=== PATIENT | female | born 1940 | race Caucasian/White ===

== ENCOUNTER 2019-03-14 11:59 | Inpatient (IN) ==
[2019-03-14] MEDS ORDERED: ALUMINUM/MAGNESIUM SUSP 30 ML UDC PO PRN (12:33)
[2019-03-14] MEDS ORDERED: MAGNESIUM HYDROXIDE SUSP 30 ML UDC PO PRN (12:33)
[2019-03-14] MEDS ORDERED: ONDANSETRON INJ 2 MG/ML 2 ML VIAL IV PRN (12:33)
[2019-03-14] MEDS ORDERED: POLYETHYLENE (MIRALAX) 17 GM PACK PO PRN (12:33)
[2019-03-14] MEDS ORDERED: ACETAMINOPHEN 325 MG TAB PO PRN (12:33)
[2019-03-14] MEDS ORDERED: GLUCOSE 10 TABS/TUBE PO PRN (12:43)
[2019-03-14] MEDS ORDERED: CARBOHYDRATES FOR HYPOGLYCEMIA PO PRN (12:43)
[2019-03-14] MEDS ORDERED: GLUCAGON FOR INJ 1 MG VIAL SQ PRN (12:43)
[2019-03-14] MEDS ORDERED: DEXTROSE 50% 50 ML SYRINGE IV PRN (12:43)
[2019-03-14] MEDS ORDERED: GLUCOSE 40% GEL 15 GM TUBE PO PRN (12:43)
[2019-03-14 13:17] LABS: Basophils # (auto) 0.07 K/uL (0-0.2); Eosinophils # (auto) 0.15 K/uL (0-0.5); Hematocrit (blood only) 38.5 % (37-47); Hemoglobin 12.4 g/dL (12.0-16.0); Immature Granulocytes # (auto) 0.03 K/uL (0.00-0.02); Immature Granulocytes % (auto) 0.4 %; Lymphocytes % (auto) 21.7 %; Mean Corpuscular Hemoglobin 30.5 pg (25-34); Mean Corpuscular Hgb Conc 32.2 g/dL (32-36); Mean Corpuscular Volume 94.8 fL (80-100); Mean Platelet Volume 10.1 fL (7.4-10.4); Monocytes # (auto) 0.83 K/uL (0.11-0.59); Monocytes % (auto) 11.3 %; Neutrophils # (auto) 4.68 K/uL (1.4-6.5); Neutrophils % (auto) 63.6 %; Platelet Count 307 K/uL (130-400); RDW Coefficient of Variation 14.3 % (11.5-14.5); RDW Standard Deviation 49.7 fL (36.4-46.3); Red Blood Count 4.06 M/uL (4.2-5.4); White Blood Count 7.36 K/uL (4.8-10.8)
[2019-03-14 13:30] LABS: Alanine Aminotransferase 14 U/L (12-78); Aspartate Aminotransferase 10 U/L (15-37); Blood Urea Nitrogen 16 mg/dl (7-18); Carbon Dioxide 27 mmol/L (21-32); Chloride 107 mmol/L (98-107); Creatinine Clr Calc Pharmacy 54.7 ml/min; Est GFR (African American) 80.6; Est GFR (Non-African American) 69.6; Glucose 113 mg/dl (70-99); Magnesium 1.7 mg/dl (1.8-2.4); Potassium 4.3 mmol/L (3.5-5.1); Sodium 139 mmol/L (136-145)
[2019-03-14 13:35] LABS: Alkaline Phosphatase 112 U/L (45-117); Bilirubin,Total 0.4 mg/dl (0.2-1); Globulin 4.1 gm/dl (2.5-4.0); NT Pro B Type Natriuretic Pept 1314 pg/ml (0-1800); Total Protein 8.1 gm/dl (6.4-8.2); Troponin I < 0.015 ng/ml (0-0.045)
--- NOTE | 2019-03-14 13:50 | History & Physical Report ---
Date of Service March 14, 2019 Assessment & Plan (1) Acute systolic (congestive) heart failure: (2) Cardiomyopathy: (3) Left bundle branch block: This is a pleasant 78-year-old female who has significant past medical history of HTN, HLD, T2DM, intermittent vertigo who presents as a direct admission from cardiology clinic secondary to progressive shortness of breath x3 weeks. Echocardiogram in clinic today revealed severe LV systolic function with EF 25%, severe mitral tricuspid regurgitation with moderate pulmonary hypertension. New onset of acute systolic CHF with cardiomyopathy of unknown etiology. Lab work revealed CBC relatively unremarkable, CMP relatively unremarkable, ex cept glucose 113, troponin WNL, proBNP 1314 TSH and iron studies pending Admit to PCU Cardiology consulted - discussed case with Dr. Johnston IV Lasix 40mg BID Initiate Toprol-XL 12.5 mg twice daily, continue ARB Strict I's and O's, daily standing weights Heart healthy, low-sodium diet N.p.o. after midnight, likely cardiac catheterization during admission, cardiology to reevaluate volume status in a.m. (4) Diabetes: T2DM A1c on 03/01/2019 was 7.2 On metformin as outpatient Hold metformin, NovoLog sliding scale per protocol (5) HTN (hypertension): Current blood pressure 153/89 Continue losartan, Toprol-XL added Monitor (6) HLD (hyperlipidemia): continue simvastatin 20mg MWF Last lipid panel done 03/01/2019 revealed total cholesterol 161, HDL 65, triglycerides 121, LDL 72 (7) DVT prophylaxis: SCD/TEDS hold chemical prophylaxis in setting of possible cardiac catheterization in a.m. Disposition: admit to PCU Follow up: PCP Sushant Ly PA-C upon discharge along with appropriate cardiology follow up Patient was seen and examined in collaboration with Dr. Fernando, please see addendum History of Present Illness Chief Complaint: Progressive shortness of breath x3 weeks. Primary Care Provider: Sushant Ly PA-C This is a pleasant 78-year-old female who has significant past medical history of HTN, HLD, T2DM, intermittent vertigo who presents as a direct admission from cardiology clinic secondary to progressive shortness of breath x3 weeks. Daughter is at bedside. She was seen and evaluated in clinic by PCP on 03/08/2019 who ordered EKG which revealed new LBBB. She was referred to cardiology clinic and was seen and evaluated today by Dr. Somers. Of significance, the past 3 weeks she has had significant and progressive shortness of breath even with minimal ambulation like walking next door to son's house and operating a vacuum housekeeping cleaner. Prior to this she had been able to walk 2 miles without difficulty. She also elicits to PND, waking up in the middle night, "feeling like I am suffocating." This required her to get up and sleep in a recliner which did alleviate symptoms. With shortness of breath she does exhibit precordial chest pressure with occasional radiation of pain to left arm that resolves with rest. Of significance approximately 4 to 5 weeks ago she did suffer from URI which has resolved. She denies any fever, chills, sweats, lightheadedness, dizziness, syncope, shortness breath at rest, palpitations, cough, hemoptysis, headache, nausea, vomiting, diarrhea, abdominal pain, dysuria, increased urgency or frequency with urination, melena, hematochezia. She has had significant stress in her life including the passing of her 12-year-old Yorki in early January as well as losing her eldest daughter approximately 2 years ago cardiomyopathy and lymphoma. She has never experienced similar symptoms in past and denies prior history of MD. Cardiac cath approximately 10 years ago which was unremarkable per patient. Her appetite has been unchanged and she denies any significant weight gain or loss. She further denies any peripheral or lower extremity edema. She did take her medications this morning. She does not take any daily aspirin secondary to allergy, "causes nausea." In clinic today EKG demonstrated sinus tachycardia with a left bundle branch block. This was new compared to EKG dated in 2007. Pulmonary resting 2D echo revealed severe LV systolic function with EF 25%, severe mitral and tricuspid re gurg with moderate pulmonary hypertension. Given these findings she was referred for direct admission for treatment of acute decompensated heart failure. Allergies Allergy/AdvReac Type Severity Reaction Status Date / Time adhesive Allergy Mild RASH Verified 03/24/15 07:00 aspirin Allergy Mild NAUSEA Verified 03/24/15 07:00 lisinopril AdvReac Mild COUGH Verified 03/24/15 09:14 Home Medications Home Medications Medication Instructions Recorded Confirmed Type losartan 25 mg PO DAILY 03/14/19 03/14/19 History metformin 850 mg PO BIDM 03/14/19 03/14/19 History naproxen 500 mg PO BID 03/14/19 03/14/19 History simvastatin 20 mg PO 3XWK 03/14/19 03/14/19 History Past Med/Surg History Medical History (Updated 03/14/19 @ 14:27 by Evy Lopez PA-C) Diabetes (Chronic) Diverticulosis History of left heart catheterization History of vertigo HLD (hyperlipidemia) HTN (hypertension) Surgical History (Updated 03/14/19 @ 13:59 by Evy Lopez PA-C) History of appendectomy History of hysterectomy with bilateral oophorectomy History of partial colectomy Laparoscopic-assisted sigmoid colon resection by Dr. Pitt 03/24/2015 Family History Daughter Cardiomyopathy Lymphoma Mother , 69 Pancreatic cancer Father , 69 AAA (abdominal aortic aneurysm) Social History (Updated 03/14/19 @ 14:01 by Evy Lopez PA-C) Preferred Language: Korean Communication Ability: Effective Beliefs That Will Affect Care: None marital status: / Current Living Situation: Alone Other Information That Helps Us Care for You: No Feels Safe at Home: Yes Safety Concerns: Feels Safe At This Time Smoking Status: Former smoker Smoking End Date: 1997 ; Hx Alcohol Use: Yes Alcohol type: wine Alcohol Intake Frequency: Rarely Hx Substance Use: No Review of Systems Review of Systems: All systems reviewed & are unremarkable except as noted in HPI & below Physical Exam Physical Exam: Please see attending addendum for physical exam findings. Results & Data Vital Signs (Past 12 Hours) Vital Signs Temp Pulse Resp BP Pulse Ox 03/14/19 12:55 36.9 C 100 H 22 153/89 H 96 Laboratory Results Short CBC 03/14/19 Range/Units 12:55 WBC 7.36 (4.8-10.8) K/uL Hgb 12.4 (12.0-16.0) g/dL Hct 38.5 (37-47) % Plt Count 307 (130-400) K/uL BMP 03/14/19 12:55 Sodium 139 Potassium 4.3 Chloride 107 Carbon Dioxide 27 BUN 16 Creatinine 0.81 Glucose 113 H Calcium 10.0 Cardiac Enzymes 03/14/19 Range/Units 12:55 Troponin I < 0.015 (0-0.045) ng/ml Liver Function 03/14/19 Range/Units 12:55 Total Bilirubin 0.4 (0.2-1) mg/dl AST 10 L (15-37) U/L ALT 14 (12-78) U/L Alkaline Phosphatase 112 (45-117) U/L Albumin 4.0 (3.4-5.0) gm/dl Diagnostic Findings CXR: done in outpt clinic EXAM XR CHEST 2 VIEWS-03/08/2019 4:20 pm HISTORY SOB COMPARISON XR CHEST 2 VIEWS dated 03/03/2018; CHEST 2 VIEWS AP OR PA AND LATERAL dated 10/18/2016; CHEST 2 VIEWS AP OR PA AND LATERAL dated 05/24/2007 TECHNIQUE Frontal and lateral views of the chest are examined. FINDINGS There is no infiltrate or pleural effusion. There is biapical thickening. There is linear atelectasis in the lingula. The pulmonary vasculature is within normal limits. The cardiomediastinal silhouette is stable. The osseous structures demonstrate degenerative changes. IMPRESSION IMPRESSION No evidence of acute cardiopulmonary disease. Code Status & VTE Plan Code Status Full Code VTE Prophylaxis Plan VTE Prophylaxis will be ordered: Yes Supervising Physician Co-Signing Physician Notes 78-year-old female who has significant past medical history of HTN, HLD, T2DM, intermittent vertigo who presents as a direct admission from cardiology clinic secondary to progressive shortness of breath x3 weeks. Patient was seen by me. History and physical exam obtained by me. History significant for dyspnea on exertion for 3 weeks, occasional PND and orthopnea; URI about 2 weeks prior to onset and loss of her dog prior to onset of symptoms. Detailed history is as documented by Evy MIN On physical exam General: Well nourished, well hydrated, no acute distress and not ill appearing Eyes: PERRL, conjunctivae normal, not pale, anicteric sclerae, EOM intact bilaterally ENMT: External ear and nose normal, oropharynx normal Neck: Normal visual inspection, no tracheal deviation, no swelling noted Respiratory: Normal respiratory effort, no respiratory distress, good air entry bilaterally, + mild bibasilar rales, no wheeze Cardiovascular: Pulse is RRR. S1 S2. no murmur. Vessels: normal peripheral pulses Extremities: no pedal edema Chest (Breasts): Chest: normal inspection of chest Gastrointestinal (Abdomen): Abdomen is not distended, soft, non-tender to palpation, no guarding, no palpable hepatosplenomegaly, normal bowel sounds Musculoskeletal: No cyanosis or clubbing, all extremities motor strength 5/5 Genitourinary: No CVA tenderness Skin: No rash noted on gross inspection, No ulcers noted Neurologic: Alert and oriented x 3, No focal weakness, sensation grossly intact Psychiatric: Alert and oriented x 3, euthymic affect, no depressed affect Lymphatic: No cervical and axillary lymphadenopathy Echo in Cardiology office noted to be EF of 25% BNP 1314 Acute systolic heart failure EKG reported to be new LBBB from Card office Get EKG IV lasix 40 bid Monitor electrolytes and replenish Follow up Echo report already done in office Discussed with Dr Johnston, Taste Tester Start toprol XL 12.5mg bid as recommended. Continue losartan Monitor I/O Will need cardiac cath during this admission Will keep NPO PMN Agree with other plans as detailed by Evy Lopez PA-C
--- NOTE | 2019-03-14 13:52 | Cardiology Consultation ---
Date of Consultation March 14, 2019 Assessment & Plan (1) Cardiomyopathy: Patient presents with newly diagnosed congestive heart failure manifesting as shortness of breath fatigue orthopnea and PND. EKG with new left bundle branch block, echocardiogram with moderately severe LV dysfunction tricuspid insufficiency, distinct etiology not yet defined. Plan initiate appropriate medical therapies with beta-sameer, diuretic. Continue ARB Screening studies for iron, thyroid function test ordered Discussed in detail with the patient, will likely proceed to diagnostic cardiac catheterization this admission. We will keep n.p.o. after midnight tonight and reassess in a.m.With potential diagnostic cardiac catheterization tomorrow. Patient with previous diagnostic cardiac catheterization 2007 with normal findings. Procedure uneventful (2) Left bundle branch block: (3) Acute systolic (congestive) heart failure: History of Present Illness Reason for Consultation: Cardiomyopathy with congestive heart failure Requesting Physician: Dr Fernando Attending Physician: Michelle Fernando MD History of Present Illness Patient is a 78-year-old female referred for evaluation of increasing dyspnea orthopnea and PND. Patient was seen in the outpatient setting today please refer to full outpatient consultation per Dr. Somers In brief patient has approximately 3 to 4-week history potentially longer of increasing dyspnea fatigue and shortness of breath at night waking her from sleep on 2 occasions. Recent evaluations demonstrated newly observed left bundle branch block and echocardiogram today diminished LV systolic function with exam history and EKG and chest x-ray reflective of mild congestive heart failure. Patient's referred for inpatient management She has no prior history of distant cardiac disease did undergo diagnostic cardiac catheterization in 2007 after abnormal stress testing with normal coronaries per report. Currently comfortable but nervous heart rates 90 to 110 bpm. No history of TIA or stroke, no history of bleeding. No kidney or liver disease. No history rheumatic fever scarlet fever or heart murmur. Appetite and weight have generally been stable. Possible viral syndrome a 1 month ago but no acute febrile illnesses recently Allergies Allergy/AdvReac Type Severity Reaction Status Date / Time adhesive Allergy Mild RASH Verified 03/24/15 07:00 aspirin Allergy Mild NAUSEA Verified 03/24/15 07:00 lisinopril AdvReac Mild COUGH Verified 03/24/15 09:14 Home Medications Home Medications Medication Instructions Recorded Confirmed Type losartan 25 mg PO DAILY 03/14/19 03/14/19 History metformin 850 mg PO BIDM 03/14/19 03/14/19 History naproxen 500 mg PO BID 03/14/19 03/14/19 History simvastatin 20 mg PO 3XWK 03/14/19 03/14/19 History Patient History Social History Preferred Language: Belarusian Beliefs That Will Affect Care: None Current Living Situation: Alone Other Information That Helps Us Care for You: No Feels Safe at Home: Yes Safety Concerns: Feels Safe At This Time Smoking Status: Unknown if ever smoked Hx Substance Use: No Review of Systems Review of Systems: All systems reviewed & are unremarkable except as noted in HPI & below Physical Exam Constitutional: WD/WN, vitals as above Eyes: PERRL, conjunctivae normal, anicteric sclerae ENMT: external ear and nose normal, oropharynx normal Neck: trachea midline, no thyromegaly Respiratory: Auscultation: + diminished lung sounds and + rales (Bibasilar) Cardiovascular: Rate/Rhythm: regular rate and regular rhythm Heart Sounds: normal S1, normal S2, + gallop and + murmur (Grade 1/6 systolic at apex) Palpation: normal PMI Vessels: normal carotid upstroke, femoral pulses present and radial pulses present; no JVD and no carotid bruit Extremities: no edema Gastrointestinal (Abdomen): normal bowel sounds, soft, nontender, no hepatosplenomegaly Musculoskeletal: no cyanosis or clubbing, extremities motor strength 5/5 Skin: no rashes, warm and dry Neurologic: PERRL, EOMI, accommodation nl, no face palsy, no dysarthria Psychiatric: A+Ox3, euthymic affect Results & Data Vital Signs (Past 12 Hours) Vital Signs Temp Pulse Resp BP Pulse Ox 03/14/19 12:55 36.9 C 100 H 22 153/89 H 96
[2019-03-14] MEDS: FUROSEMIDE 40 MG in SYRINGE 0 ML IV SCH ×2 (14:12→20:21)
[2019-03-14] MEDS: METOPROLOL SUCC 25MG EXT REL TAB PO SCH ×2 (14:12→20:22)
[2019-03-14] MEDS: SIMVASTATIN 20 MG TAB PO SCH (14:12)
[2019-03-14 14:29] LABS: Ferritin 42.3 ng/ml (8-388); Thyroid Stimulating Hormone 2.59 uIu/ml (0.300-4.500)
[2019-03-14] MEDS: MAGNESIUM SULFATE / D5W 1 GM/100 ML BAG IV SCH ×2 (14:50→15:52)
[2019-03-14] MEDS: INSULIN ASPART 100 UNITS/ML 3 ML PEN SC SCH ×2 (17:55→20:23)
--- NOTE | 2019-03-14 23:42 | Electrocardiogram Report ---
Test Reason : Blood Pressure : / mmHG Vent. Rate : 103 BPM Atrial Rate : 103 BPM P-R Int : 152 ms QRS Dur : 122 ms QT Int : 382 ms P-R-T Axes : 075 -08 067 degrees QTc Int : 500 ms Sinus tachycardia with Premature atrial complexes Left bundle branch block Abnormal ECG No previous ECGs available Confirmed by Zak David ([id number]) on 03/14/2019 11:42:19 PM Referred By: Michelle Fernando Confirmed By:Zak David
[2019-03-15 07:58] LABS: Hematocrit (blood only) 37.8 % (37-47); Hemoglobin 12.3 g/dL (12.0-16.0); Mean Corpuscular Hemoglobin 30.6 pg (25-34); Mean Corpuscular Hgb Conc 32.5 g/dL (32-36); Mean Platelet Volume 10.2 fL (7.4-10.4); Platelet Count 307 K/uL (130-400); RDW Coefficient of Variation 14.6 % (11.5-14.5); RDW Standard Deviation 49.8 fL (36.4-46.3); Red Blood Count 4.02 M/uL (4.2-5.4); White Blood Count 6.63 K/uL (4.8-10.8)
[2019-03-15 08:25] LABS: BUN Creatinine Ratio 27.8 (10-20); Calcium 9.2 mg/dl (8.5-10.1); Creatinine Clr Calc Pharmacy 37.8 ml/min; Est GFR (African American) 52.2; Est GFR (Non-African American) 45.1; Magnesium 2.3 mg/dl (1.8-2.4); Potassium 4.1 mmol/L (3.5-5.1)
[2019-03-15] MEDS: INSULIN ASPART 100 UNITS/ML 3 ML PEN SC SCH ×4 (08:37→21:24)
[2019-03-15] MEDS: METOPROLOL SUCC 25MG EXT REL TAB PO SCH ×3 (08:38→21:58)
[2019-03-15] MEDS: FUROSEMIDE 40 MG in SYRINGE 0 ML IV SCH (08:39)
[2019-03-15] MEDS ORDERED: LOSARTAN POTASSIUM 25 MG TAB PO SCH (09:00)
[2019-03-15] MEDS ORDERED: SODIUM CHLORIDE 0.9% 1000ML 1,000 ML IV SCH (09:45)
[2019-03-15] MEDS ORDERED: HEPARIN (PORCINE) 1000 UNIT/ML 10 ML (CATH LAB USE ONLY) ONE (11:48)
[2019-03-15] MEDS ORDERED: NiCARDipine HCL INJ 2.5 MG/ML 10 ML AMP ONE (11:48)
[2019-03-15] MEDS ORDERED: MIDAZOLAM HCL 1 MG/ML 2ML VIAL ONE (11:49)
[2019-03-15] MEDS ORDERED: fentaNYL citrate 100 MCG/2 ML VIAL ONE (11:49)
[2019-03-15] MEDS ORDERED: NITROGLYCERIN/D5W 100MCG/ML 20ML SYR ONE (11:49)
[2019-03-15 12:53] LABS: iSTAT Arterial Blood Gas HCO3 29 meg/L (19-24); iSTAT Arterial Blood Gas pCO2 44 mmHg (35-46); iSTAT Arterial Blood Gas pH 7.42 (7.35-7.45); iSTAT Arterial Blood Gas pO2 34 mmHg (80-95); iSTAT Carbon Dioxide 30 mmol/L (24-31); iSTAT Hematocrit 36 % (37-47); iSTAT Hemoglobin 12.2 g/dl (12.0-16.0); iSTAT Potassium 3.6 mmol/L (3.3-5.0); iSTAT Sodium 141 mmol/L (135-144)
--- NOTE | 2019-03-15 13:07 | Pre Anesthesia Assessment ---
Date of Service March 15, 2019 Pre Sedation Assessment Vital Signs Temp Pulse Pulse Resp BP BP Pulse Ox 03/15/19 10:30 36.9 C 83 18 116/62 94 03/15/19 08:00 82 03/15/19 07:04 36.5 C 77 20 99/66 L 93 03/15/19 05:12 36.5 C 81 20 95/59 L 93 03/15/19 00:08 36.5 C 96 H 18 97/65 L 95 03/14/19 19:13 36.8 C 104 H 18 131/77 94 03/14/19 15:38 36.5 C 95 H 17 109/66 93 Cardiovascular + regular rate and + tachycardic no palpable S3 + radial pulses present; no JVD Respiratory + rales Pre-Sedation Airway Assessment Smoking Status: Former smoker Mallampati Class: II NPO Status Date of Last Intake of Fluids: 03/15/19 Time of Last Intake of Fluids: 08:00 Last Oral Intake of Fluids Comment: Sips of fluid with medications Date of Last Intake of Solid Food: 03/14/19 Time of Last Intake of Solid Foods: 21:06 Procedure Planning Contraindications for Sedation: none Current Medications Reviewed: Yes Notes The planned sedation has been discussed with the patient. Informed Consent was obtained. I have identified the patient, determined the appropriateness of sedation and have assessed the patient immediately prior to the procedure. All medicine(s) and interventions are by my order.
--- NOTE | 2019-03-15 13:17 | Cardiac Catheterization ---
Cardiac Cath Procedure: Brief Procedure Date March 15, 2019 Pre-Procedure Diagnosis Pre-Procedure Diagnosis: CHF and Cardiomyopathy AUC Score AUC Score: 8 Post-Procedure Diagnosis Post-Procedure Diagnosis: Normal Coronary Arteries, Decreased LV Systolic Function and Normal Intracardiac Pressures Procedure(s) Performed Procedure(s) Performed: Coronary Angiography, Left Heart Cath, Right Heart Cath and LV Angiography Cushion Maker Will Johnston MD French Drawer(s) Yonathan Shahid Estimated Blood Loss Estimated Blood Loss: <15cc Medication(s) Medication(s): Fentanyl (12.5 mcg IV x 2), Heparin (4000 units IV), Lidocaine 1% (Local infiltration access site), Nicardipine (250 mcg intra-arterial after arterial sheath insertion) and Versed (1 mg IV x 2) Preliminary Findings Right dominant coronary anatomy with large caliber vessels and normal vasculature Left main: Large caliber and free of disease Left anterior descending: Type III in distribution with moderate first diagonal branch in its proximal portion and two small diagonal branches in its mid portion. There is a physiologic 20% origin taper but no disease Ramus intermedius: Moderately large vessel free of disease Left circumflex: Consists of a single obtuse marginal branch and is free of disease Right coronary artery very large caliber and dominant distribution giving rise to 2 right ventricular branches in its midportion a conus branch at its origin. Gives rise to moderate-sized posterior descending artery and 3 posterior ventricular branches along the AV groove. There is no disease in the right coronary artery LV angiography: Left ventricle is dilated with diffuse left ventricular dysfunction EF 35% there is moderate mitral insufficiency Hemodynamics: Right atrial pressure 2, RV pressure 25/2, pulmonary artery pressure 28/4 with mean of 16, pulmonary capillary wedge pressure mean of 5 with a V wave of 6 Aortic root pressure 93/49 with mean of 68, LV pressure 90/2 EDP of 7 with no transmitral valve gradient, no transaortic valve gradient on pullback to the aortic root Cardiac output 5.2 L/min by thermal dilution 3.6 L minute by Toñito equation, RA saturation 66% PA saturation 68% aortic root saturation 96%, heart rate 88 Recommendations Recommendations: Medical Therapy and/or Counseling Specimens Specimens: None Fluids (cc crystalloids) Fluids (cc crystalloids): 15 Anesthesia Start time 1221 Stop time 1302 Procedural Complication(s) None Disposition PCU
[2019-03-15 13:27] LABS: iSTAT Arterial Blood Gas HCO3 26 meg/L (19-24); iSTAT Arterial Blood Gas pCO2 42 mmHg (35-46); iSTAT Arterial Blood Gas pH 7.39 (7.35-7.45); iSTAT Arterial Blood Gas pO2 80 mmHg (80-95); iSTAT Carbon Dioxide 27 mmol/L (24-31); iSTAT Hematocrit 33 % (37-47); iSTAT Hemoglobin 11.2 g/dl (12.0-16.0); iSTAT Potassium 3.3 mmol/L (3.3-5.0); iSTAT Sodium 142 mmol/L (135-144)
[2019-03-15 13:27] LABS: iSTAT Arterial Blood Gas HCO3 28 meg/L (19-24); iSTAT Arterial Blood Gas pCO2 44 mmHg (35-46); iSTAT Arterial Blood Gas pH 7.41 (7.35-7.45); iSTAT Arterial Blood Gas pO2 35 mmHg (80-95); iSTAT Carbon Dioxide 29 mmol/L (24-31); iSTAT Hematocrit 38 % (37-47); iSTAT Hemoglobin 12.9 g/dl (12.0-16.0); iSTAT Potassium 3.7 mmol/L (3.3-5.0); iSTAT Sodium 141 mmol/L (135-144)
[2019-03-15] MEDS: SODIUM CHLORIDE 0.9% 1000ML 1,000 ML IV SCH ×2 (13:59→19:54)
--- NOTE | 2019-03-15 15:09 | Hospitalist Progress Note ---
Date of Service March 15, 2019 Assessment & Plan (1) Cardiomyopathy: s/p Cardiac catheterization on this admission -78-year-old female who has significant past medical history of HTN, HLD, T2DM, intermittent vertigo who presents on 03/15/2019 as a direct admission from cardiology clinic secondary to progressive shortness of breath x3 weeks. -Echocardiogram in clinic revealed severe LV systolic function with EF 25%, severe mitral tricuspid regurgitation with moderate pulmonary hypertension. -Cardiac catheterization performed on 03/15/2019 (Right dominant coronary anatomy with large caliber vessels and normal vasculature Left main: Large caliber and free of disease Left anterior descending: Type III in distribution with moderate first diagonal branch in its proximal portion and two small diagonal branches in its mid portion. There is a physiologic 20% origin taper but no disease Ramus intermedius: Moderately large vessel free of disease Left circumflex: Consists of a single obtuse marginal branch and is free of disease Right coronary artery very large caliber and dominant distribution giving rise to 2 right ventricular branches in its midportion a conus branch at its origin. Gives rise to moderate-sized posterior descending artery and 3 posterior ventricular branches along the AV groove. There is no disease in the right coronary artery LV angiography: Left ventricle is dilated with diffuse left ventricular dysfunction EF 35% there is moderate mitral insufficiency Hemodynamics: Right atrial pressure 2, RV pressure 25/2, pulmonary artery pressure 28/4 with mean of 16, pulmonary capillary wedge pressure mean of 5 with a V wave of 6 Aortic root pressure 93/49 with mean of 68, LV pressure 90/2 EDP of 7 with no transmitral valve gradient, no transaortic valve gradient on pullback to the aortic root Cardiac output 5.2 L/min by thermal dilution 3.6 L minute by Toñito equation, RA saturation 66% PA saturation 68% aortic root saturation 96%, heart rate 88) -s/p cardiac cath on 03/15/2019 and appreciate further changes to cardiac medications as per cardiology service -currently on metoprolol succinate 12.5 mg TID -monitor renal function because of cardiac cath dye (2) Left bundle branch block: -on telemetry (3) Acute systolic (congestive) heart failure: -was initially given Lasix on presentation -s/p cardiac cath on 03/15/2019 and appreciate further changes to cardiac medications as per cardiology service (4) HTN (hypertension): -home losartan is held -currently on metoprolol succinate 12.5 mg TID (5) Diabetes: Type 2 diabetes mellitus without buttermaker continuous churn current use of insulin -HbA1c on 03/01/2019 was 7.2 -Hold metformin -give NovoLog sliding scale per protocol (6) HLD (hyperlipidemia): -continue simvastatin 20mg MWF Last lipid panel done 03/01/2019 revealed total cholesterol 161, HDL 65, tr iglycerides 121, LDL 72 (7) DVT prophylaxis: -SCD/TEDS Subjective Patient seen and examined after cardiac cath. Patient eating food. Patient denies chest pain or palpitations or shortness of breath. is breathing on room air. TR band on right wrist. no acute wrist pain. no abdomen pain. vomiting Review of Systems Review of Systems: All systems reviewed & are unremarkable except as noted in HPI & below Physical Exam Constitutional: comfortable Eyes: PERRL, conjunctivae normal, anicteric sclerae EOM intact bilaterally ENMT: external ear and nose normal, oropharynx normal Neck: normal visual inspection Respiratory: normal respiratory effort, lungs clear to auscultation Cardiovascular: Rate/Rhythm: regular rate Gastrointestinal (Abdomen): normal bowel sounds, soft, nontender, no hepatosplenomegaly Musculoskeletal: Head/Neck/Chest: normocephalic and head atraumatic TR band on left wrist Neurologic: PERRL, EOMI, accommodation nl, no face palsy, no dysarthria CN's II-XI intact bilaterally Psychiatric: A+Ox3, euthymic affect Results & Data Vital Signs (Past 12 Hours) Vital Signs Temp Pulse Pulse Resp BP Pulse Ox 03/15/19 14:24 91 H 16 102/69 92 03/15/19 14:09 90 16 109/70 94 03/15/19 13:54 36.5 C 92 H 16 117/53 L 93 03/15/19 13:30 88 18 92/58 L 94 03/15/19 13:15 90 18 97/68 L 94 03/15/19 10:30 36.9 C 83 18 116/62 94 03/15/19 08:00 82 03/15/19 07:04 36.5 C 77 20 99/66 L 93 03/15/19 05:12 36.5 C 81 20 95/59 L 93
--- NOTE | 2019-03-15 15:34 | Cardiology Progress Note ---
Date of Service March 15, 2019 Assessment & Plan (1) Cardiomyopathy: Patient presents with newly diagnosed congestive heart failure manifesting as shortness of breath fatigue orthopnea and PND. EKG with new left bundle branch block, echocardiogram with moderately severe LV dysfunction tricuspid insufficiency, distinct etiology not yet defined. Cardiac catheterization reflects nonischemic cardiomyopathy. Iron studies and thyroid function normal, serum immunoelectrophoresis pending Plan: Cardiac catheterization today demonstrates normal coronaries with large caliber vessels. There is moderate left ear dysfunction EF 35% with moderate mitral insufficiency. Right heart pressures are normal to low. Will titrate beta-sameer higher with Toprol 12.5 mg 3 times per day. Blood pressures were somewhat soft this morning we will hold losartan until beta- sameer tolerate. No further diuretics today, currently euvolemic by exam and intracardiac pressures (2) Left bundle branch block: (3) Acute systolic (congestive) heart failure: Subjective Patient seen and examined, chart, medications, telemetry reviewed. Patient examined both prior and after diagnostic cardiac catheterization. Feels improved from admission good diuresis overnight. No racing heart or palpitations. No dizziness or lightheadedness. Tolerated diagnostic cardiac catheterization well with study demonstrating normal coronaries and moderate left ventricular dysfunction Review of Systems Review of Systems: All systems reviewed & are unremarkable except as noted in HPI & below Physical Exam Constitutional: WD/WN, vitals as above Eyes: PERRL, conjunctivae normal, anicteric sclerae ENMT: Mallampati Class: II Neck: trachea midline, no thyromegaly Respiratory: Auscultation: + rales (Minimal rales right base) Cardiovascular: Rate/Rhythm: regular rate and regular rhythm Heart Sounds: normal S1, normal S2, + gallop and + murmur (Grade 1/6 systolic at apex) Palpation: normal PMI; S3 nonpalpable Vessels: normal carotid upstroke, femoral pulses present and radial pulses present (Right radial access site healing well); no JVD and no carotid bruit Extremities: no edema Gastrointestinal (Abdomen): normal bowel sounds, soft, nontender, no hepatosplenomegaly Musculoskeletal: no cyanosis or clubbing, extremities motor strength 5/5 Skin: no rashes, warm and dry Neurologic: PERRL, EOMI, accommodation nl, no face palsy, no dysarthria Psychiatric: A+Ox3, euthymic affect Results & Data Vital Signs (Past 12 Hours) Vital Signs Temp Pulse Pulse Resp BP Pulse Ox 03/15/19 15:24 87 16 112/73 93 03/15/19 14:24 91 H 16 102/69 92 03/15/19 14:09 90 16 109/70 94 03/15/19 13:54 36.5 C 92 H 16 117/53 L 93 03/15/19 13:30 88 18 92/58 L 94 03/15/19 13:15 90 18 97/68 L 94 03/15/19 10:30 36.9 C 83 18 116/62 94 03/15/19 08:00 82 03/15/19 07:04 36.5 C 77 20 99/66 L 93 03/15/19 05:12 36.5 C 81 20 95/59 L 93 Laboratory Results Laboratory Results - last 24 hr 03/14/19 03/14/19 03/15/19 16:34 20:21 07:19 WBC RBC Hgb POC Hgb Hct POC Hct MCV MCH MCHC RDW Std Deviation RDW Coeff of Narayan Plt Count MPV POC pH POC pCO2 POC pO2 POC HCO3 POC Total CO2 POC Base Excess POC Sodium Sodium POC Potassium Potassium Chloride Carbon Dioxide Anion Gap BUN Creatinine Est Cr Clr Drug Dosing Est GFR ( Amer) Est GFR (Non-Af Amer) BUN/Creatinine Ratio Glucose POC Glucose 144 H 114 H Calcium Magnesium Serum Immunofixation Pending 03/15/19 03/15/19 03/15/19 07:19 07:19 07:40 WBC 6.63 RBC 4.02 L Hgb 12.3 POC Hgb Hct 37.8 POC Hct MCV 94.0 MCH 30.6 MCHC 32.5 RDW Std Deviation 49.8 H RDW Coeff of Narayan 14.6 H Plt Count 307 MPV 10.2 POC pH POC pCO2 POC pO2 POC HCO3 POC Total CO2 POC Base Excess POC Sodium Sodium 139 POC Potassium Potassium 4.1 Chloride 103 Carbon Dioxide 29 Anion Gap 7.0 BUN 32 H D Creatinine 1.16 D Est Cr Clr Drug Dosing 37.8 Est GFR ( Amer) 52.2 Est GFR (Non-Af Amer) 45.1 BUN/Creatinine Ratio 27.8 H Glucose 159 H POC Glucose 148 H Calcium 9.2 Magnesium 2.3 Serum Immunofixation 03/15/19 03/15/19 03/15/19 12:31 12:34 12:53 WBC RBC Hgb POC Hgb 12.2 12.9 11.2 L Hct POC Hct 36 L 38 33 L MCV MCH MCHC RDW Std Deviation RDW Coeff of Narayan Plt Count MPV POC pH 7.42 7.41 7.39 POC pCO2 44 44 42 POC pO2 34 L 35 L 80 POC HCO3 29 H 28 H 26 H POC Total CO2 30 29 27 POC Base Excess 4.0 H 3.0 H 1.0 POC Sodium 141 141 142 Sodium POC Potassium 3.6 3.7 3.3 Potassium Chloride Carbon Dioxide Anion Gap BUN Creatinine Est Cr Clr Drug Dosing Est GFR ( Amer) Est GFR (Non-Af Amer) BUN/Creatinine Ratio Glucose POC Glucose Calcium Magnesium Serum Immunofixation
--- NOTE | 2019-03-15 17:56 | Cardiac Catheterization ---
Cardiac Cath Procedure Full Procedure Date March 15, 2019 Pre-Procedure Diagnosis Pre-Procedure Diagnosis: CHF and Cardiomyopathy AUC Score AUC Score: 8 Post-Procedure Diagnosis Post-Procedure Diagnosis: Normal Coronary Arteries, Decreased LV Systolic Function and Normal Intracardiac Pressures Procedure(s) Performed Procedure(s) Performed: Coronary Angiography, Left Heart Cath, Right Heart Cath and LV Angiography [employer] Systems Engineer Will Johnston MD Nursing Specialist(s) Yonathan Shahid Estimated Blood Loss Estimated Blood Loss: <15cc Medication(s) Medication(s): Fentanyl (12.5 mcg IV x 2), Heparin (4000 units IV), Lidocaine 1% (Local infiltration access site), Nicardipine (250 mcg intra-arterial after arterial sheath insertion) and Versed (1 mg IV x 2) Summary of Findings Right dominant coronary anatomy with large caliber vessels and normal vasculature Left main: Large caliber and free of disease Left anterior descending: Type III in distribution with moderate first diagonal branch in its proximal portion and two small diagonal branches in its mid portion. There is a physiologic 20% origin taper but no disease Ramus intermedius: Moderately large vessel free of disease Left circumflex: Consists of a single obtuse marginal branch and is free of disease Right coronary artery very large caliber and dominant distribution giving rise to 2 right ventricular branches in its midportion a conus branch at its origin. Gives rise to moderate-sized posterior descending artery and 3 posterior ventricular branches along the AV groove. There is no disease in the right coronary artery LV angiography: Left ventricle is dilated with diffuse left ventricular dysfunction EF 35% there is moderate mitral insufficiency Hemodynamics: Right atrial pressure 2, RV pressure 25/2, pulmonary artery pressure 28/4 with mean of 16, pulmonary capillary wedge pressure mean of 5 with a V wave of 6 Aortic root pressure 93/49 with mean of 68, LV pressure 90/2 EDP of 7 with no transmitral valve gradient, no transaortic valve gradient on pullback to the aortic root Cardiac output 5.2 L/min by thermal dilution 3.6 L minute by Toñito equation, RA saturation 66% PA saturation 68% aortic root saturation 96%, heart rate 88 Impression: Nonischemic cardiomyopathy with compensated right heart and intracardiac pressures, moderate to severe LV dysfunction Hemodynamics Rest Ao:: 93/49/68 Final Ao: 101/53/73 LV: 92/11/12 RA: 7/1 mean 2 RV: 25/2 PA: 28/4, mean 16 PW: 5 with a V wave of 6 Recommendations Recommendations: Medical Therapy and/or Counseling Specimens Specimens: None Radiation Exposure (mGy) 428 Contrast (mls) 105 Fluids (cc crystalloids) Fluids (cc crystalloids): 15 Anesthesia Start time 1221 Stop time 1302 Procedural Complication(s) None Disposition PCU I attest to the content of the Intraoperative Record and any orders documented therein. Any exceptions are noted below. ACC Data: Data Center Operator Cardiac Status Patient is a 78-year-old female presented with acute onset of congestive heart failure, new left bundle branch block and echocardiac evidence of diffuse cardiomyopathy CAD Presenation: No Sxs, No angina Anginal Classification: No Symptoms Heart Failure: NYHA Class: CCS III Cardiogenic Shock within 24 Hours: No Cardiac Arrest within 24 Hours: No Imaging Studies Past 6 Months: Yes Stress Studies Past 6 Months: No Standard Exercise Test: No Stress Echocardiogram: No Stress Testing w/SPECT MPI: No Cardiac CTA: No Coronary Anatomy Dominant: Right Left Main (% Stenosis): Normal LAD (% Stenosis): Normal D1 (% Stenosis): Normal Circumflex (% Stenosis): Normal OM1 (% Stenosis): Normal RCA (% Stenosis): Normal R PDA (% Stenosis): Normal Ramus (% Stenosis): Normal Left Ventricular Angiography EF (%): 35 Mitral Regurgitation: 2+ Diagnostic Physicians Name: Will Johnston MD Status: Urgent Closure Device Percutaneous Entry Location: Radial Closure Device: Radial Band Recommendations: Medical Therapy and/or Counseling
[2019-03-16] MEDS: SODIUM CHLORIDE 0.9% 1000ML 1,000 ML IV SCH (00:23)
--- NOTE | 2019-03-16 05:40 | Electrocardiogram Report ---
Test Reason : Blood Pressure : / mmHG Vent. Rate : 086 BPM Atrial Rate : 086 BPM P-R Int : 158 ms QRS Dur : 128 ms QT Int : 428 ms P-R-T Axes : 064 -09 071 degrees QTc Int : 512 ms Normal sinus rhythm Left bundle branch block Minimal voltage criteria for LVH, may be normal variant When compared with ECG of 14-MAR-2019 13:20, Premature atrial complexes are no longer Present Confirmed by Zak David ([id number]) on 03/16/2019 5:40:23 AM Referred By: Michelle Fernando Confirmed By:Zak David
[2019-03-16 07:05] LABS: Basophils # (auto) 0.05 K/uL (0-0.2); Basophils % (auto) 0.8 %; Eosinophils % (auto) 3.1 %; Hematocrit (blood only) 36.9 % (37-47); Hemoglobin 11.9 g/dL (12.0-16.0); Immature Granulocytes # (auto) 0.02 K/uL (0.00-0.02); Immature Granulocytes % (auto) 0.3 %; Lymphocytes # (auto) 1.18 K/uL (1.2-3.4); Lymphocytes % (auto) 18.4 %; Mean Corpuscular Hemoglobin 30.9 pg (25-34); Mean Corpuscular Hgb Conc 32.2 g/dL (32-36); Mean Corpuscular Volume 95.8 fL (80-100); Monocytes # (auto) 1.04 K/uL (0.11-0.59); Monocytes % (auto) 16.3 %; Neutrophils # (auto) 3.91 K/uL (1.4-6.5); Neutrophils % (auto) 61.1 %; Platelet Count 297 K/uL (130-400); RDW Coefficient of Variation 14.8 % (11.5-14.5); RDW Standard Deviation 52.2 fL (36.4-46.3); Red Blood Count 3.85 M/uL (4.2-5.4)
[2019-03-16 07:36] LABS: Albumin Level 3.5 gm/dl (3.4-5.0); BUN Creatinine Ratio 30.5 (10-20); Calcium 9.1 mg/dl (8.5-10.1); Creatinine Clr Calc Pharmacy 42.8 ml/min; Est GFR (African American) 60.3; Potassium 4.5 mmol/L (3.5-5.1)
[2019-03-16 07:39] LABS: Bilirubin,Total 0.4 mg/dl (0.2-1); Globulin 3.7 gm/dl (2.5-4.0); Total Protein 7.2 gm/dl (6.4-8.2)
[2019-03-16] MEDS: METOPROLOL SUCC 25MG EXT REL TAB PO SCH ×2 (08:40→17:11)
[2019-03-16] MEDS: INSULIN ASPART 100 UNITS/ML 3 ML PEN SC SCH ×4 (08:41→21:22)
[2019-03-16] MEDS: SIMVASTATIN 20 MG TAB PO SCH (08:41)
[2019-03-16] MEDS ORDERED: METOPROLOL SUCC 25MG EXT REL TAB PO ONE (09:21)
--- NOTE | 2019-03-16 11:56 | Cardiology Progress Note ---
Date of Service March 16, 2019 Assessment & Plan (1) Cardiomyopathy: Patient presents with newly diagnosed congestive heart failure manifesting as shortness of breath fatigue orthopnea and PND. EKG with new left bundle branch block, echocardiogram with moderately severe LV dysfunction tricuspid insufficiency, distinct etiology not yet defined. Cardiac catheterization reflects nonischemic cardiomyopathy. Iron studies and thyroid function normal, serum immunoelectrophoresis pending Plan: Cardiac catheterization demonstrates normal coronaries with large caliber vessels. There is moderate left ventricular dysfunction EF 35% with moderate mitral insufficiency. Right heart pressures are normal to low. Will titrate beta-sameer to Toprol-XL 25 mg twice per day. Resume losartan in a.m. Continue telemetry overnight CHF instructions Will require likely 2 to 3 days/week oral diuretic Consider initiation of Entresto post hospital discharge (2) Left bundle branch block: (3) Acute systolic (congestive) heart failure: Subjective Patient seen and examined, chart, medications, telemetry reviewed. Patient feels improved since admission. No dizziness or lightheadedness no syncope or near syncope. Breathing easier. Tolerated cardiac catheterization yesterday, right radial artery site healing well as well as right brachial vein site intact Physical Exam Constitutional: WD/WN, vitals as above Eyes: PERRL, conjunctivae normal, anicteric sclerae ENMT: Mallampati Class: II Neck: trachea midline, no thyromegaly Respiratory: Auscultation: + rales (Minimal rales right base) Cardiovascular: Rate/Rhythm: regular rate and regular rhythm Heart Sounds: normal S1, normal S2, + gallop and + murmur (Grade 1/6 systolic at apex) Palpation: normal PMI; S3 nonpalpable Vessels: normal carotid upstroke, femoral pulses present and radial pulses present (Right radial access site healing well); no JVD and no carotid bruit Extremities: no edema Gastrointestinal (Abdomen): normal bowel sounds, soft, nontender, no hepatosplenomegaly Musculoskeletal: no cyanosis or clubbing, extremities motor strength 5/5 Skin: no rashes, warm and dry Neurologic: PERRL, EOMI, accommodation nl, no face palsy, no dysarthria Psychiatric: A+Ox3, euthymic affect Results & Data Vital Signs (Past 12 Hours) Vital Signs Temp Pulse Resp BP BP Pulse Ox 03/16/19 07:58 36.7 C 87 17 92/61 L 100/65 94 03/16/19 03:47 36.6 C 80 18 99/64 L 95 03/16/19 00:18 36.5 C 80 17 92/56 L 94 Laboratory Results Laboratory Results - last 24 hr 03/15/19 03/15/19 03/15/19 12:31 12:34 12:53 WBC RBC Hgb POC Hgb 12.2 12.9 11.2 L Hct POC Hct 36 L 38 33 L MCV MCH MCHC RDW Std Deviation RDW Coeff of Narayan Plt Count MPV Immature Gran % (Auto) Neut % (Auto) Lymph % (Auto) [place] % (Auto) Eos % (Auto) Baso % (Auto) Immature Gran # (Auto) Neut # (Auto) Lymph # (Auto) [place] # (Auto) Eos # (Auto) Baso # (Auto) POC pH 7.42 7.41 7.39 POC pCO2 44 44 42 POC pO2 34 L 35 L 80 POC HCO3 29 H 28 H 26 H POC Total CO2 30 29 27 POC Base Excess 4.0 H 3.0 H 1.0 POC Sodium 141 141 142 Sodium POC Potassium 3.6 3.7 3.3 Potassium Chloride Carbon Dioxide Anion Gap BUN Creatinine Est Cr Clr Drug Dosing Est GFR ( Amer) Est GFR (Non-Af Amer) BUN/Creatinine Ratio Glucose POC Glucose Calcium Total Bilirubin AST ALT Alkaline Phosphatase Total Protein Albumin Globulin Albumin/Globulin Ratio 03/15/19 03/15/19 03/16/19 16:31 20:41 06:42 WBC 6.40 RBC 3.85 L Hgb 11.9 L POC Hgb Hct 36.9 L POC Hct MCV 95.8 MCH 30.9 MCHC 32.2 RDW Std Deviation 52.2 H RDW Coeff of Narayan 14.8 H Plt Count 297 MPV 10.0 Immature Gran % (Auto) 0.3 Neut % (Auto) 61.1 Lymph % (Auto) 18.4 [place] % (Auto) 16.3 Eos % (Auto) 3.1 Baso % (Auto) 0.8 Immature Gran # (Auto) 0.02 Neut # (Auto) 3.91 Lymph # (Auto) 1.18 L [place] # (Auto) 1.04 H Eos # (Auto) 0.20 Baso # (Auto) 0.05 POC pH POC pCO2 POC pO2 POC HCO3 POC Total CO2 POC Base Excess POC Sodium Sodium POC Potassium Potassium Chloride Carbon Dioxide Anion Gap BUN Creatinine Est Cr Clr Drug Dosing Est GFR ( Amer) Est GFR (Non-Af Amer) BUN/Creatinine Ratio Glucose POC Glucose 210 H 118 H Calcium Total Bilirubin AST ALT Alkaline Phosphatase Total Protein Albumin Globulin Albumin/Globulin Ratio 03/16/19 03/16/19 03/16/19 06:42 07:41 11:37 WBC RBC Hgb POC Hgb Hct POC Hct MCV MCH MCHC RDW Std Deviation RDW Coeff of Narayan Plt Count MPV Immature Gran % (Auto) Neut % (Auto) Lymph % (Auto) [place] % (Auto) Eos % (Auto) Baso % (Auto) Immature Gran # (Auto) Neut # (Auto) Lymph # (Auto) [place] # (Auto) Eos # (Auto) Baso # (Auto) POC pH POC pCO2 POC pO2 POC HCO3 POC Total CO2 POC Base Excess POC Sodium Sodium 138 POC Potassium Potassium 4.5 Chloride 105 Carbon Dioxide 29 Anion Gap 5.0 BUN 31 H Creatinine 1.03 Est Cr Clr Drug Dosing 42.8 Est GFR ( Amer) 60.3 Est GFR (Non-Af Amer) 52.0 BUN/Creatinine Ratio 30.5 H Glucose 159 H POC Glucose 186 H 158 H Calcium 9.1 Total Bilirubin 0.4 AST 10 L ALT 14 Alkaline Phosphatase 96 Total Protein 7.2 Albumin 3.5 Globulin 3.7 Albumin/Globulin Ratio 1.0
--- NOTE | 2019-03-16 14:34 | Hospitalist Progress Note ---
Date of Service March 16, 2019 Assessment & Plan (1) Cardiomyopathy: s/p Cardiac catheterization on this admission -78-year-old female who has significant past medical history of HTN, HLD, T2DM, intermittent vertigo who presents on 03/15/2019 as a direct admission from cardiology clinic secondary to progressive shortness of breath x3 weeks. -Echocardiogram in clinic revealed severe LV systolic function with EF 25%, severe mitral tricuspid regurgitation with moderate pulmonary hypertension. -Cardiac catheterization performed on 03/15/2019 (Right dominant coronary anatomy with large caliber vessels and normal vasculature Left main: Large caliber and free of disease Left anterior descending: Type III in distribution with moderate first diagonal branch in its proximal portion and two small diagonal branches in its mid portion. There is a physiologic 20% origin taper but no disease Ramus intermedius: Moderately large vessel free of disease Left circumflex: Consists of a single obtuse marginal branch and is free of disease Right coronary artery very large caliber and dominant distribution giving rise to 2 right ventricular branches in its midportion a conus branch at its origin. Gives rise to moderate-sized posterior descending artery and 3 posterior ventricular branches along the AV groove. There is no disease in the right coronary artery LV angiography: Left ventricle is dilated with diffuse left ventricular dysfunction EF 35% there is moderate mitral insufficiency Hemodynamics: Right atrial pressure 2, RV pressure 25/2, pulmonary artery pressure 28/4 with mean of 16, pulmonary capillary wedge pressure mean of 5 with a V wave of 6 Aortic root pressure 93/49 with mean of 68, LV pressure 90/2 EDP of 7 with no transmitral valve gradient, no transaortic valve gradient on pullback to the aortic root Cardiac output 5.2 L/min by thermal dilution 3.6 L minute by Toñito equation, RA saturation 66% PA saturation 68% aortic root saturation 96%, heart rate 88) -03/16/2019 Patient remains in the hospital for titration of cardiovascular medications as per cardiology, current on metoprolol succinate 25 mg BID serum immunofixation as ordered by cardiology service on 03/15/2019 with results pending (2) Left bundle branch block: -on telemetry (3) Acute systolic (congestive) heart failure: -was initially given Lasix on presentation -s/p cardiac cath on 03/15/2019 -as per cardiology 03/16/2019 "Will require likely 2 to 3 days/week oral diuretic; Consider initiation of Entresto post hospital discharge" (4) HTN (hypertension): -monitor blood pressure on metoprolol (5) Diabetes: Type 2 diabetes mellitus without [facility] current use of insulin -HbA1c on 03/01/2019 was 7.2 -Hold metformin -give NovoLog sliding scale per protocol (6) HLD (hyperlipidemia): -Last lipid panel done 03/01/2019 revealed total cholesterol 161, HDL 65, triglycerides 121, LDL 72 -continue simvastatin 20mg MWF (7) DVT prophylaxis: -SCD/TEDS Subjective Patient seen and examined. She remains in the hospital for titration of cardiovascular medications as per cardiology Patient denies chest pain or palpitations. breathing on room air. no distress. no dizziness. no lightheadedness. no nausea. no vomiting. no abdomen pain. Review of Systems Review of Systems: All systems reviewed & are unremarkable except as noted in HPI & below Physical Exam Constitutional: comfortable Eyes: PERRL, conjunctivae normal, anicteric sclerae EOM intact bilaterally ENMT: external ear and nose normal, oropharynx normal Neck: normal visual inspection Respiratory: normal respiratory effort, lungs clear to auscultation Cardiovascular: Rate/Rhythm: regular rate Gastrointestinal (Abdomen): normal bowel sounds, soft, nontender, no hepatosplenomegaly Musculoskeletal: Head/Neck/Chest: normocephalic and head atraumatic Neurologic: PERRL, EOMI, accommodation nl, no face palsy, no dysarthria CN's II-XI intact bilaterally Psychiatric: A+Ox3, euthymic affect Results & Data Vital Signs (Past 12 Hours) Vital Signs Temp Pulse Resp BP BP Pulse Ox 03/16/19 11:53 36.4 C L 90 18 112/69 96 03/16/19 07:58 36.7 C 87 17 92/61 L 100/65 94 03/16/19 03:47 36.6 C 80 18 99/64 L 95
--- NOTE | 2019-03-17 06:03 | Electrocardiogram Report ---
Test Reason : Blood Pressure : / mmHG Vent. Rate : 081 BPM Atrial Rate : 081 BPM P-R Int : 162 ms QRS Dur : 124 ms QT Int : 428 ms P-R-T Axes : 068 -15 078 degrees QTc Int : 497 ms Normal sinus rhythm Left bundle branch block Abnormal ECG When compared with ECG of 15-MAR-2019 06:28, No significant change was found Confirmed by Zak David ([id number]) on 03/17/2019 6:03:09 AM Referred By: Michelle Fernando Confirmed By:Zak David
[2019-03-17 07:24] LABS: Albumin Level 3.4 gm/dl (3.4-5.0); BUN Creatinine Ratio 26.9 (10-20); Calcium 8.9 mg/dl (8.5-10.1); Creatinine Clr Calc Pharmacy 44.2 ml/min; Est GFR (African American) 62.5; Est GFR (Non-African American) 53.9; Potassium 4.1 mmol/L (3.5-5.1)
[2019-03-17 07:27] LABS: Albumin Globulin Ratio 0.9 (0.9-2); Bilirubin,Total 0.4 mg/dl (0.2-1); Globulin 3.6 gm/dl (2.5-4.0)
[2019-03-17] MEDS: INSULIN ASPART 100 UNITS/ML 3 ML PEN SC SCH ×2 (08:41→11:52)
[2019-03-17] MEDS: METOPROLOL SUCC 25MG EXT REL TAB PO SCH (08:43)
[2019-03-17] MEDS ORDERED: LOSARTAN POTASSIUM 25 MG TAB PO SCH (09:00)
--- NOTE | 2019-03-17 11:02 | Cardiology Progress Note ---
Date of Service March 17, 2019 Assessment & Plan (1) Cardiomyopathy: Patient presents with newly diagnosed congestive heart failure manifesting as shortness of breath fatigue orthopnea and PND. EKG with new left bundle branch block, echocardiogram with moderately severe LV dysfunction tricuspid insufficiency, distinct etiology not yet defined. Cardiac catheterization reflects nonischemic cardiomyopathy. Iron studies and thyroid function normal, serum immunoelectrophoresis pending Plan: Cardiac catheterization demonstrates normal coronaries with large caliber vessels. There is moderate left ventricular dysfunction EF 35% with moderate mitral insufficiency. Right heart pressures are normal to low. Will titrate beta-sameer to Toprol-XL 25 mg twice per day. Resume losartan in a.m. Continue telemetry overnight CHF instructions Will require likely 2 to 3 days/week oral diuretic Consider initiation of Entresto post hospital discharge tolerating losartan addition this AM, ambulating in hallway, felling well ok to d/c from cardiac standpoint on currrent doses of metoprolol and losartan would also send home with a script for lasix 20mg po daily prn sob my office will call to arrange f/u in cardiology clinic (2) Left bundle branch block: (3) Acute systolic (congestive) heart failure: Subjective Patient seen and examined ambulating in the hallway. She states that she feels great and has had no recurrences of shortness of breath either with exertion or with lying flat. She states that she feels almost back to normal at this point. She also denies any chest pain, palpitations, lightheadedness, dizziness or syncope. She is anxious for discharge. Telemetry reviewed shows normal sinus rhythm with underlying left bundle branch block pattern Review of Systems 2 Review of Systems: All systems reviewed & are unremarkable except as noted in HPI & below Physical Exam Physical Exam: General: Awake, alert and oriented x 3. No acute distress. HEENT: Normocephalic, atraumatic. Pupils equal, round and reactive to light and accommodation. Extraocular muscles are intact. Anicteric sclera. Moist mucous membranes. Neck: No JVD. No bruit. Cardiovascular: Regular. Positive S-4. Normal S-1 and S-2. No S-3. No murmurs or rubs. Pulmonary: Clear to auscultation B/L. No rales, rhonchi or wheezing Abdomen: Bowel sounds x 4, soft. No rebound, guarding or tenderness. No organomegaly. Extremities: No clubbing, cyanosis or edema. +2 pedal pulses bilaterally. Skin: Warm and dry. Results & Data Vital Signs (Past 12 Hours) Vital Signs Temp Pulse Resp BP BP Pulse Ox 03/17/19 07:05 36.6 C 82 19 97/62 L 95 03/17/19 03:55 36.4 C L 77 18 96/58 L 94 03/16/19 23:52 36.6 C 82 18 94/56 L 93
--- NOTE | 2019-03-17 11:32 | Hospitalist Progress Note ---
Date of Service March 17, 2019 Assessment & Plan (1) Cardiomyopathy: s/p Cardiac catheterization on this admission -78-year-old female who has significant past medical history of HTN, HLD, T2DM, intermittent vertigo who presents on 03/15/2019 as a direct admission from cardiology clinic secondary to progressive shortness of breath x3 weeks. -Echocardiogram in clinic revealed severe LV systolic function with EF 25%, severe mitral tricuspid regurgitation with moderate pulmonary hypertension. -Cardiac catheterization performed on 03/15/2019 (Right dominant coronary anatomy with large caliber vessels and normal vasculature Left main: Large caliber and free of disease Left anterior descending: Type III in distribution with moderate first diagonal branch in its proximal portion and two small diagonal branches in its mid portion. There is a physiologic 20% origin taper but no disease Ramus intermedius: Moderately large vessel free of disease Left circumflex: Consists of a single obtuse marginal branch and is free of disease Right coronary artery very large caliber and dominant distribution giving rise to 2 right ventricular branches in its midportion a conus branch at its origin. Gives rise to moderate-sized posterior descending artery and 3 posterior ventricular branches along the AV groove. There is no disease in the right coronary artery LV angiography: Left ventricle is dilated with diffuse left ventricular dysfunction EF 35% there is moderate mitral insufficiency Hemodynamics: Right atrial pressure 2, RV pressure 25/2, pulmonary artery pressure 28/4 with mean of 16, pulmonary capillary wedge pressure mean of 5 with a V wave of 6 Aortic root pressure 93/49 with mean of 68, LV pressure 90/2 EDP of 7 with no transmitral valve gradient, no transaortic valve gradient on pullback to the aortic root Cardiac output 5.2 L/min by thermal dilution 3.6 L minute by Toñito equation, RA saturation 66% PA saturation 68% aortic root saturation 96%, heart rate 88) -03/16/2019: Patient remains in the hospital for titration of cardiovascular medications as per cardiology, current on metoprolol succinate 25 mg BID -03/17/2019: Discharge Medications of metoprolol succinate 25 mg twice a day and losartan 25 mg daily. Also discharge medication of furosemide (Lasix) 20 mg once a day only as needed if shortness of breath. Medications sent electronically to [facility] on [address], [place], [place] [address] scheduled appointments 03/20/2019 3:00 PM Provider NATALIE Chappell Jr.C Department [facility] 04/02/2019 2:00 PM Provider Jv Somers DO Department Cardiology, [facility] (outpatient cardiology management on whether any changes to frequency of diuretics or needs for Entresto) serum immunofixation as ordered by cardiology service on 03/15/2019 with results pending (2) Left bundle branch block: -no acute events on telemetry (3) Acute systolic (congestive) heart failure: -was initially given Lasix on presentation -s/p cardiac cath on 03/15/2019 -management as above (4) HTN (hypertension): -blood pressure stable as low normotensive, patient ambulating. no dizziness. no lightheadedness (5) Diabetes: Type 2 diabetes mellitus without halfway current use of insulin -HbA1c on 03/01/2019 was 7.2 -Hold metformin while inpatient; NovoLog sliding scale per protocol while inpatient -resume metformin after discharge (6) HLD (hyperlipidemia): -Last lipid panel done 03/01/2019 revealed total cholesterol 161, HDL 65, triglycerides 121, LDL 72 -continue simvastatin 20mg MWF (7) DVT prophylaxis: -SCD/TEDS Discharge Diagnosis: Acute systolic (congestive) heart failure, Left bundle branch block, Cardiomyopathy; s/p Cardiac catheterization on this admission, Type 2 diabetes mellitus without adjunct faculty for medical terminology current use of insulin, HTN (hypertension) Subjective Patient ambulating. no dizziness. no lightheadedness. no nausea. no vomiting. no abdomen pain. no chest pain. no shortness of breath. no dizziness. discharge plans discussed at length Review of Systems Review of Systems: All systems reviewed & are unremarkable except as noted in HPI & below Physical Exam Constitutional: comfortable Eyes: PERRL, conjunctivae normal, anicteric sclerae EOM intact bilaterally ENMT: external ear and nose normal, oropharynx normal Neck: normal visual inspection Respiratory: normal respiratory effort, lungs clear to auscultation Cardiovascular: Rate/Rhythm: regular rate and regular rhythm Gastrointestinal (Abdomen): normal bowel sounds, soft, nontender, no hepatosplenomegaly Musculoskeletal: Head/Neck/Chest: normocephalic and head atraumatic Neurologic: PERRL, EOMI, accommodation nl, no face palsy, no dysarthria CN's II-XI intact bilaterally Psychiatric: A+Ox3, euthymic affect Results & Data Vital Signs (Past 12 Hours) Vital Signs Temp Pulse Resp BP BP Pulse Ox 03/17/19 07:05 36.6 C 82 19 97/62 L 95 03/17/19 03:55 36.4 C L 77 18 96/58 L 94 03/16/19 23:52 36.6 C 82 18 94/56 L 93
--- NOTE | 2019-03-17 12:18 | Discharge Summary ---
Date of Service March 17, 2019 Admission HPI Per Admitting Provider This is a pleasant 78-year-old female who has significant past medical history of HTN, HLD, T2DM, intermittent vertigo who presents as a direct admission from cardiology clinic secondary to progressive shortness of breath x3 weeks. Daughter is at bedside. She was seen and evaluated in clinic by PCP on 03/08/2019 who ordered EKG which revealed new LBBB. She was referred to cardiology clinic and was seen and evaluated today by Dr. Somers. Of significance, the past 3 weeks she has had significant and progressive shortness of breath even with minimal ambulation like walking next door to son's house and operating a vacuum cooker cleaner. Prior to this she had been able to walk 2 miles without difficulty. She also elicits to PND, waking up in the middle night, "feeling like I am suffocating." This required her to get up and sleep in a recliner which did alleviate symptoms. With shortness of breath she does exhibit precordial chest pressure with occasional radiation of pain to left arm that resolves with rest. Of significance approximately 4 to 5 weeks ago she did suffer from URI which has resolved. She denies any fever, chills, sweats, lightheadedness, dizziness, syncope, shortness breath at rest, palpitations, cough, hemoptysis, headache, nausea, vomiting, diarrhea, abdominal pain, dysuria, increased urgency or frequency with urination, melena, hematochezia. She has had significant stress in her life including the passing of her 12-year-old Yorki in early January as well as losing her eldest daughter approximately 2 years ago cardiomyopathy and lymphoma. She has never experienced similar symptoms in past and denies prior history of PR. Cardiac cath approximately 10 years ago which was unremarkable per patient. Her appetite has been unchanged and she denies any significant weight gain or loss. She further denies any peripheral or lower extremity edema. She did take her medications this morning. She does not take any daily aspirin secondary to allergy, "causes nausea." In clinic today EKG demonstrated sinus tachycardia with a left bundle branch block. This was new compared to EKG dated in 2007. Pulmonary resting 2D echo revealed severe LV systolic function with EF 25%, severe mitral and tricuspid regurg with moderate pulmonary hypertension. Given these findings she was referred for direct admission for treatment of acute decompensated heart failure. Admission Exam Per Admitting Provider General: Well nourished, well hydrated, no acute distress and not ill appearing Eyes: PERRL, conjunctivae normal, not pale, anicteric sclerae, EOM intact bilaterally ENMT: External ear and nose normal, oropharynx normal Neck: Normal visual inspection, no tracheal deviation, no swelling noted Respiratory: Normal respiratory effort, no respiratory distress, good air entry bilaterally, + mild bibasilar rales, no wheeze Cardiovascular: Pulse is RRR. S1 S2. no murmur. Vessels: normal peripheral pulses Extremities: no pedal edema Chest (Breasts): Chest: normal inspection of chest Gastrointestinal (Abdomen): Abdomen is not distended, soft, non-tender to palpation, no guarding, no palpable hepatosplenomegaly, normal bowel sounds Musculoskeletal: No cyanosis or clubbing, all extremities motor strength 5/5 Genitourinary: No CVA tenderness Skin: No rash noted on gross inspection, No ulcers noted Neurologic: Alert and oriented x 3, No focal weakness, sensation grossly intact Psychiatric: Alert and oriented x 3, euthymic affect, no depressed affect Lymphatic: No cervical and axillary lymphadenopathy Principal Diagnosis Acute systolic (congestive) heart failure, Left bundle branch block, Cardiomyopathy; s/p Cardiac catheterization on this admission, Type 2 diabetes mellitus without [place] [facility] current use of insulin, HTN (hypertension) Discharge Exam Constitutional comfortable Eyes PERRL, conjunctivae normal, anicteric sclerae EOM intact bilaterally ENMT external ear and nose normal, oropharynx normal Neck normal visual inspection Respiratory normal respiratory effort, lungs clear to auscultation Cardiovascular Rate/Rhythm: regular rate and regular rhythm Gastrointestinal (Abdomen) normal bowel sounds, soft, nontender, no hepatosplenomegaly Musculoskeletal Head/Neck/Chest: normocephalic and head atraumatic Neurologic PERRL, EOMI, accommodation nl, no face palsy, no dysarthria CN's II-XI intact bilaterally Psychiatric A+Ox3, euthymic affect Discharge Data Allergies Allergy/AdvReac Type Severity Reaction Status Date / Time adhesive Allergy Mild RASH Verified 03/24/15 07:00 aspirin Allergy Mild NAUSEA Verified 03/24/15 07:00 lisinopril AdvReac Mild COUGH Verified 03/24/15 09:14 Consultations 03/14/19 12:33 Consult Cardiology Routine 03/14/19 12:34 Consult Case Management - Discharge Planning Routine Procedures Performed Operation Date: 03/15/19 11:00 Actual Procedures p Cath, Right and Left Heart - Will Johnston MD s Cineradiography w/Routine Exam - Will Johnston MD Ordered Studies 03/15/19 09:01 CL Cath Imgs for PACS use only Stat Hospital Course (1) Cardiomyopathy: s/p Cardiac catheterization on this admission -78-year-old female who has significant past medical history of HTN, HLD, T2DM, intermittent vertigo who presents on 03/15/2019 as a direct admission from cardiology clinic secondary to progressive shortness of breath x3 weeks. -Echocardiogram in clinic revealed severe LV systolic function with EF 25%, severe mitral tricuspid regurgitation with moderate pulmonary hypertension. -Cardiac catheterization performed on 03/15/2019 (Right dominant coronary anatomy with large caliber vessels and normal vasculature Left main: Large caliber and free of disease Left anterior descending: Type III in distribution with moderate first diagonal branch in its proximal portion and two small diagonal branches in its mid portion. There is a physiologic 20% origin taper but no disease Ramus intermedius: Moderately large vessel free of disease Left circumflex: Consists of a single obtuse marginal branch and is free of disease Right coronary artery very large caliber and dominant distribution giving rise to 2 right ventricular branches in its midportion a conus branch at its origin. Gives rise to moderate-sized posterior descending artery and 3 posterior ventricular branches along the AV groove. There is no disease in the right coronary artery LV angiography: Left ventricle is dilated with diffuse left ventricular dysfunction EF 35% there is moderate mitral insufficiency Hemodynamics: Right atrial pressure 2, RV pressure 25/2, pulmonary artery pressu re 28/4 with mean of 16, pulmonary capillary wedge pressure mean of 5 with a V wave of 6 Aortic root pressure 93/49 with mean of 68, LV pressure 90/2 EDP of 7 with no transmitral valve gradient, no transaortic valve gradient on pullback to the aortic root Cardiac output 5.2 L/min by thermal dilution 3.6 L minute by Toñito equation, RA saturation 66% PA saturation 68% aortic root saturation 96%, heart rate 88) -03/16/2019: Patient remains in the hospital for titration of cardiovascular medications as per cardiology, current on metoprolol succinate 25 mg BID -03/17/2019: Discharge Medications of metoprolol succinate 25 mg twice a day and losartan 25 mg daily. Also discharge medication of furosemide (Lasix) 20 mg once a day only as needed if shortness of breath. Medications sent electronically to [facility] on [address] [place] [address] scheduled appointments 03/20/2019 3:00 PM Provider NATALIE Chappell Jr.C Department [facility] 04/02/2019 2:00 PM Provider Jv Somers DO Department Cardiology, [facility] (outpatient cardiology management on whether any changes to frequency of diuretics or needs for Entresto) serum immunofixation as ordered by cardiology service on 03/15/2019 with results pending (2) Left bundle branch block: -no acute events on telemetry (3) Acute systolic (congestive) heart failure: -was initially given Lasix on presentation -s/p cardiac cath on 03/15/2019 -management as above (4) HTN (hypertension): -blood pressure stable as low normotensive, patient ambulating. no dizziness. no lightheadedness (5) Diabetes: Type 2 diabetes mellitus without squirrel man current use of insulin -HbA1c on 03/01/2019 was 7.2 -Hold metformin while inpatient; NovoLog sliding scale per protocol while inpatient -resume metformin after discharge (6) HLD (hyperlipidemia): -Last lipid panel done 03/01/2019 revealed total cholesterol 161, HDL 65, triglycerides 121, LDL 72 -continue simvastatin 20mg MWF (7) DVT prophylaxis: -SCD/TEDS Discharge Diagnosis: Acute systolic (congestive) heart failure, Left bundle branch block, Cardiomyopathy; s/p Cardiac catheterization on this admission, Type 2 diabetes mellitus without [place] [facility] current use of insulin, HTN (hypertension) Total Time Total Time Spent Total Time Spent (In Minutes): 40 minutes Total Time Includes: Examination of the Patient, Discharge Planning, Medication Reconciliation and Communication With Other Providers Discharge Plan Discharge Items Patient Disposition: Home - Self-Care Reason For Visit: NEW ONSET OF HEART FAILURE Discharge Diagnosis: Acute systolic (congestive) heart failure, Left bundle branch block, Cardiomyopathy; s/p Cardiac catheterization on this admission, Type 2 diabetes mellitus without squirrel man current use of insulin, HTN (hypertension) Condition on Discharge: Good Activity: Resume your previous activity Non-emergency contact: Primary Care Provider and Gang Investigator Call non-emergency contact if: you have any medication questions Follow-up/Referrals: Sushant Ly, RAPHAEL [Primary Care Provider] - Diet: Carb Consistent or DM2, Heart Healthy and Low Sodium (2gm) Addtl Attending Provider Instructions: Discharge Medications of metoprolol succinate 25 mg twice a day and losartan 25 mg daily. Also discharge medication of furosemide (Lasix) 20 mg once a day only as needed if shortness of breath. Medications sent electronically to [facility] on [address] [place] [address] scheduled appointments 03/20/2019 3:00 PM Provider Sushant Ly Jr., PA-C Department [facility] 04/02/2019 2:00 PM Provider Jv Somers DO Department Cardiology, [facility] (outpatient cardiology management on whether any changes to frequency of diuretics or needs for Entresto) Pending Studies at Discharge: No Studies:: serum immunofixation as ordered by cardiology service on 03/15/2019 with results pending Stand-Alone Forms: My [facility], Smoking Cessation Medications and DC Order Prescriptions: New losartan 25 mg Tablet 25 mg PO QAM 30 Days Qty: 30 RF: 0 furosemide 20 mg tablet 20 mg PO DAILY PRN (Reason: shortness of breath) 30 Days Qty: 30 RF: 0 metoprolol succinate 25 mg Tablet Extended Release 24 Hr 25 mg PO BID 30 Days Qty: 60 RF: 0 Continued metformin 850 mg tablet 850 mg PO BIDM RF: 0 simvastatin 20 mg tablet 20 mg PO 3XWK RF: 0 naproxen 500 mg Tablet 500 mg PO BID RF: 0 Discontinued losartan 25 mg tablet 25 mg PO DAILY RF: 0 Discharge Orders: Discharge Order (Routine); Ordered 03/17/19 Ordered By: Jamaal Gerard/Other Patient Handouts: Heart Failure Warning Signs Admission Data Admit Date/Time: 03/14/19 12:14 Attending Provider: Jamaal Trivedi Admit Provider: Michelle Fernando I. Primary Care Provider: Sushant Ly Other Providers: Will Johnston Other Interventions: Discharge Summary Assessment (RN) Last Done: 03/17/19 12:03
== END 2019-03-17 12:42 | disposition home or self-care (01) | DRG 287 ==
LOC: SUATTDRO 12:14 → 2S 12:14

== ENCOUNTER 2019-08-29 12:38 | Observation (INO) ==
--- NOTE | 2019-08-29 14:24 | History & Physical Bridge Note ---
Date of Service August 29, 2019 History & Physical Bridge Note I have examined the patient, reviewed the History & Physical and in the interval since the performance of the History & Physical I have noted the following changes of clinical significance: no changes noted
--- NOTE | 2019-08-29 14:24 | Pre Anesthesia Assessment ---
Date of Service August 29, 2019 Pre Sedation Assessment Vital Signs Temp Pulse Resp BP Pulse Ox 08/29/19 13:40 36.7 C 78 18 141/69 H 97 Cardiovascular RRR, no murmur, no edema Respiratory normal respiratory effort, lungs clear to auscultation Pre-Sedation Airway Assessment Smoking Status: Former smoker Hx Sleep Apnea: No Short, Thick Neck: Yes Thyromental Distance: > or= 3.5 Finger Breadths Oral Cavity: + Dentures and + WNL Mallampati Class: III ASA: ASA2 NPO Status Date of Last Intake of Fluids: 08/29/19 Time of Last Intake of Fluids: 10:00 Date of Last Intake of Solid Food: 08/28/19 Time of Last Intake of Solid Foods: 20:00 Procedure Planning Contraindications for Sedation: none Current Medications Reviewed: Yes Notes The planned sedation has been discussed with the patient. Informed Consent was obtained. I have identified the patient, determined the appropriateness of sedation and have assessed the patient immediately prior to the procedure. All medicine(s) and interventions are by my order.
[2019-08-29] MEDS ORDERED: MIDAZOLAM HCL 5 MG/ML 1 ML VIAL ONE ×3 (14:32→16:36)
[2019-08-29] MEDS ORDERED: fentaNYL citrate 100 MCG/2 ML VIAL ONE ×3 (14:32→16:09)
[2019-08-29] MEDS ORDERED: LIDOCAINE HCL 1% 20 ML VIAL ONE (14:33)
[2019-08-29] MEDS ORDERED: BACITRACIN INJ 50,000 UNIT VIAL ONE (14:33)
[2019-08-29] MEDS ORDERED: BUPIVACAINE 0.25% 30 ML VIAL ONE (14:33)
[2019-08-29] MEDS ORDERED: CEFAZOLIN 250 MG/ML 1 GM VIAL ONE (14:37)
[2019-08-29] MEDS ORDERED: OXYCODONE/ACETAMINOPHEN 5mg/325mg TAB PO PRN (17:24)
[2019-08-29] MEDS ORDERED: NURSING DECISION MEDICATION ONE (17:26)
--- NOTE | 2019-08-29 17:33 | Post Anesthesia Assessment ---
Date of Service August 29, 2019 Post Sedation Assessment Vital Signs Temp Pulse Resp BP Pulse Ox 08/29/19 13:40 36.7 C 78 18 141/69 H 97 Recovery Score Activity: Moves 4 extremities Respiration: Deep Breath/Cough Circulation: +/-20% PreAnes Value Consciousness: Fully Awake Oxygen Saturation: > 92% On Room Air Discharge Sedation Level of Care: Fast Track Phase II Post Sedation Plan On clinical assessment, the patient appears to have tolerated the sedation without complications. Patient is recovering as anticipated. Patient will continue to be monitored by nursing and may be discharged when sedation discharge criteria are met per below protocol. Upon Completions of procedure up to 15 minutes continue every 5 minute vital signs and the P.A.R. score; then discharge to a Phase I or Fast Track to Phase II per the following guidelines: * Discharge Patient to appropriate Phase II area if PAR is 8 or greater or return to pre- procedure baseline. The post - procedure orders will be as directed. * If PAR score is less than 8 or not return to pre-procedure baseline then patient will follow Phase I monitoring till PAR is reached for Phase II. The Phase I may be done in procedure room or may call to secure a Phase I area. * If naloxone or flumazenil are used for reversal, hold in Phase I for continued monitoring from when last reversal dose was given for a minimum of 60 minutes or longer pending the nurse and/or physician discretion of patient condition before discharge to Phase II. Please call the Sedation Physician to re-evaluate and complete post-note for discharge to Phase II area. Do NOT discharge from procedure sedation or Phase 1 until post- sedation evaluation note is complete by procedure /sedation MD Sedation Discharge Instructions to be given to the patient at discharge to home.
--- NOTE | 2019-08-29 17:33 | Operative Report ---
Post Operative Report Pre & Post Diagnosis Pre: nicm, chf, lbbb post: Same plus CHB Operation Date: 08/29/19 14:00 <No data on this case meets the specified criteria> I identified the patient and participated in the time-out.: Yes Procedure Operation Date: 08/29/19 14:00 Actual Procedures s Bundle of his Recording - Margaux Funez DO s Venogram, Unilateral - Margaux Funez, s Insertion Single Lead Only - Margaux Funez DO p ICD Insertion Single or Dual - Margaux Funez, Surgeon Margaux Funez, Final Finisher none Estimated Blood Loss 20 Findings Consistent with Post-Op Diagnosis Specimens none Description of Procedure see official report I attest to the content of the Intraoperative Record and any orders documented therein. Any exceptions are noted below.
[2019-08-29] MEDS: METFORMIN HCL 850 MG TAB PO SCH (20:18)
[2019-08-29] MEDS: SACUBITRIL-VALSARTAN 49/51 MG TAB PO SCH (20:19)
[2019-08-29] MEDS: METOPROLOL SUCC 25MG EXT REL TAB PO SCH (20:20)
[2019-08-29] MEDS ORDERED: SIMVASTATIN 20 MG TAB PO SCH (21:00)
[2019-08-29] MEDS: ACETAMINOPHEN 325 MG TAB PO PRN (21:28)
[2019-08-30] MEDS: METFORMIN HCL 850 MG TAB PO SCH (08:00)
[2019-08-30] MEDS: METOPROLOL SUCC 25MG EXT REL TAB PO SCH (08:00)
[2019-08-30] MEDS: SACUBITRIL-VALSARTAN 49/51 MG TAB PO SCH (08:00)
[2019-08-30] MEDS: ACETAMINOPHEN 325 MG TAB PO PRN (08:06)
--- NOTE | 2019-08-30 08:15 | Discharge Summary ---
Date of Service August 30, 2019 Admission HPI Per Admitting Provider pt admitted for elective BiV ICD Admission Exam Per Admitting Provider aaox3, NAD NC/AT, EOMI Supple No JVD Nrl S1/S2, No murmur CTA b/l no w/r/r soft nt/nd no LE edema b/l skin intact no focal deficits Principal Diagnosis NICM s/p BIV ICD Discharge Exam aaox3, NAD NC/AT, EOMI Supple No JVD Nrl S1/S2, No murmur CTA b/l no w/r/r soft nt/nd no LE edema b/l skin intact no focal deficits left pectoral incision intact, no hematoma mild ecchymosis Discharge Data Allergies Allergy/AdvReac Type Severity Reaction Status Date / Time adhesive Allergy Mild RASH Verified 08/29/19 17:33 aspirin Allergy Mild NAUSEA Verified 08/29/19 17:33 lisinopril AdvReac Mild COUGH Verified 08/29/19 17:33 Procedures Performed Operation Date: 08/29/19 14:00 Actual Procedures s Bundle of his Recording - Margaux Funez DO s Venogram, Unilateral - Margaux Funez DO s Insertion Single Lead Only - Margaux Funez DO p ICD Insertion Single or Dual - Margaux Funez DO Ordered Studies CXR: No PTX; leads in position ECG: His bundle paced 08/29/19 07:15 EP Lab Images for PACS ONCE Hospital Course (1) NICM (nonischemic cardiomyopathy): (2) Left bundle branch block: (3) Acute systolic (congestive) heart failure: (4) HTN (hypertension): (5) HLD (hyperlipidemia): Total Time Total Time Spent Total Time Spent (In Minutes): 40 Total Time Includes: Examination of the Patient, Discharge Planning, Medication Reconciliation and Other Discharge Plan Discharge Items Reason For Visit: BIV ICD Medications and DC Order Prescriptions: No Action acetaminophen [Tylenol] 325 mg Tablet 325 mg Q6 PRN (Reason: Pain) RF: 0 spironolactone [Aldactone] 25 mg Tablet 25 mg PO DAILY RF: 0 furosemide [Lasix] 20 mg Tablet 20 mg DAILY RF: 0 metoprolol succinate 25 mg Tablet Extended Release 24 Hr 25 mg PO BID RF: 0 Entresto 49-51 mg Tablet 1 tab PO BID RF: 0 metformin [Glucophage] 850 mg tablet 850 mg PO BID RF: 0 simvastatin [Zocor] 20 mg tablet 20 mg PO 3XWK RF: 0 Admission Data Admit Date/Time: 08/29/19 16:06 Attending Provider: Margaux Funez Admit Provider: Margaux Funez Primary Care Provider: Sushant Ly
[2019-08-30] MEDS ORDERED: SPIRONOLACTONE 25 MG TAB PO SCH (09:00)
--- NOTE | 2019-08-30 09:25 | XRay Report ---
XR chest 2V PA/lateral CLINICAL HISTORY: post biventricular his bundle ICD COMPARISON STUDY: No previous studies for comparison. FINDINGS: There is a left subclavian pacer/defibrillator. The heart is borderline enlarged. Electrode position is unremarkable. There is no failure. There is no lobar consolidation. There is minimal lef t basilar atelectasis. There is no pneumothorax.[ IMPRESSION: No evidence of pneumothorax status post placement of a left subclavian pacemaker defibril latmaykel. ACT 112: Negative or not required by law. Electronically signed by: José Miguel Kendall M.D. 08/30/2019 9:24 AM
--- NOTE | 2019-08-31 04:50 | Electrocardiogram Report ---
Test Reason : Blood Pressure : / mmHG Vent. Rate : 081 BPM Atrial Rate : 081 BPM P-R Int : 168 ms QRS Dur : 116 ms QT Int : 412 ms P-R-T Axes : 060 -33 170 degrees QTc Int : 478 ms Atrial-sensed ventricular-paced rhythm with Premature atrial complexes with Aberrant conduction Abnormal ECG When compared with ECG of 16-MAR-2019 06:25, Ventricular pacing is now present Confirmed by Zak David ([id number]) on 08/31/2019 4:50:11 AM Referred By: Margaux Funez Confirmed By:Zak David
[2019-08-31] MEDS ORDERED: FUROSEMIDE 20 MG TAB PO SCH (09:00)
--- NOTE | 2019-09-03 07:37 | Operative Report (OR) ---
DATE OF OPERATION: 08/29/2019 PREOPERATIVE DIAGNOSES: Nonischemic cardiomyopathy, chronic heart failure secondary to reduced ejection fraction [place] [employer] class 2 and left bundle branch block. POSTOPERATIVE DIAGNOSES: Nonischemic cardiomyopathy, chronic heart failure secondary to reduced ejection fraction [place] [employer] class 2 and left bundle branch block plus complete heart block. PROCEDURE: Biventricular rate responsive implantable cardiac defibrillator (with the LV lead over the His bundle region), intracardiac electrogram mapping of the His bundle region, peripheral venogram under fluoroscopic guidance. SURGEON: Margaux Funez DO. TECHNICAL SALES CONSULTANT: None. ANESTHESIA: Monitored conscious sedation administered under my supervision by Marla Pandya. Start time 14:53, end time 17:20. Total of 11 mg of Versed, 275 mcg of fentanyl. IV FLUIDS: 77 mL. ANTIBIOTICS: 1 gram of Ancef. BLOOD LOSS: 20 mL. URINE OUTPUT: Not applicable. SPECIMENS: None. FINDINGS: See below. IV CONTRAST: 10 mL. INDICATIONS: This is a 79-year-old female with past medical history for nonischemic cardiomyopathy ejection fraction 30%-34%, chronic heart failure secondary to reduced ejection fraction [place] [employer] class 2, left bundle branch block, moderate aortic stenosis, moderate mitral regurgitation, hypertension, hyperlipidemia, diabetes. She presented for a biventricular device. CONSENT: Consent was obtained prior to the patient going into electrophysiology lab. The patient was informed of the risks, benefits and alternative to procedure. Risks include but not limited to sudden cardiac ; cardiac arrhythmias; cerebrovascular accident; myocardial infarction; injury to the blood vessels, chamber of the heart, lung; bleeding and infection. The patient understood these risks and agreed to the procedure as planned. Informed consent was obtained. DESCRIPTION OF THE PROCEDURE: The patient was brought into Electrophysiology Lab in a fasting state. She was connected to continuous library monitor. A timeout was performed to ensure patient identity and procedure correctly. The patient was prepped and draped over the left infraclavicular space in normal surgical standard fashion. Monitored conscious sedation was given throughout the procedure for the patient's comfort level. [place] precautions maintained throughout the procedure. She received prophylactic antibiotics prior to incision. A 10 mL of 1% lidocaine-bupivacaine mixture were given in the left deltopectoral groove. Blunt dissection was performed down to identify the cephalic vein. Cephalic vein was identified using 0 silk ties. The vein was nicked with an 11 blade and a guidewire was inserted without any resistance. Then a peripheral venogram was performed to identify the axillary vein. Axillary venous access was obtained through a needlestick without any problems. The guidewire was inserted without any resistance. Then, I went back to the cephalic vein and I placed an 8-Swedish sheath through the guidewire, removed the dilator and placed another guidewire through the sheath to allow for retained venous access. Sheath was removed, flushed and reinserted over the dilator. Then the sheath was inserted over one of the guidewires without any resistance. The dilator and guidewire were removed and the right ventricular lead was being advanced into the right ventricular outflow tract of the right ventricle. The patient went into complete heart block and sinus arrest. I quickly dropped the lead down into the apex region, it may have actually even been in a branch, dropped all the way out to the branch, but I was quickly able to capture the myocardium and she only had about 11 seconds pause through the temporary pacing. Then I opted through the axillary site. I placed an 8-Swedish sheath down and through that guidewire and then placed a pacing wire down into the right ventricular apex region and screwed that in, so I back up pacing while I was placing the defibrillator lead. I then positioned the right ventricular defibrillator lead. Then, I went back to the right ventricular lead. The right ventricular defibrillator lead no longer have ideal capture and was not really capturing. I then found a spot where it looked pretty decent. We screwed that in and the sheath was split and the lead was fixated to pectoralis muscle using 0 silk suture. Then an hydrophilic 8-Swedish sheath was inserted over the retained guidewire through the cephalic site. The guidewire and dilator removed. I was able to place a Glidewire down, so I do not use cephalic venous access. Then, the right atrial sheath was split and the right atrial lead was fixated to pectoralis muscle using 0 silk suture. The right atrial lead was positioned interatrial appendage under fluoroscopic guidance and there was adequate pacing and sensing thresholds and no diaphragmatic stimulation with high output pacing. The 8-Swedish sheath was peeled away and lead was fixated to pectoralis muscle using 0 silk suture. Went back to test the right ventricular lead and it was not working, so I was able to pass a Glidewire. The 0 silk sutures that was tied down to the right ventricular leads were removed. I unscrewed the right ventricular lead. I was still pacing off the temporary pacing lead that I had screwed into the heart through the axillary vein, but I was not able to reposition the lead. I pulled the lead out and then through the retained Glidewire was able to keep the cephalic access and I placed the wire along hydrophilic sheath over that without any resistance. Dilator and guidewire were removed. The right ventricular defibrillator lead was then advanced into right ventricle and positioned in intraventricular apex under fluoroscopic guidance. There was adequate pacing and sensing thresholds and no diaphragmatic stimulation with high output pacing. The right 8-Swedish sheath was peeled away and lead was fixated to pectoralis muscle using 0 silk suture. I then unscrewed the temporary pacing lead that was in the right ventricle through the axillary vein and we checked that out of the heart. I then swapped that sheath, the 8-Swedish sheath out for a 9.5-Swedish sheath through the axillary vein and then over a Glidewire, the MPX Medtronic outer sheath was advanced and then the dilator and the guidewire were removed. Then using a Decapolar coronary sinus diagnostic catheter, I tried to cannulate the coronary sinus but was unable. So I opted to do a His bundle, so the MPX was removed and the Medtronic His V304 deflectable sheath was advanced into the right atrium over a Glidewire. The Glidewire and dilator were removed. Then we did unipolar intracardiac mapping of the His bundle region. The AH was found to be 54 and the HV was found to be 80. The lead was screwed into the His. There was adequate pacing and sensing thresholds and no diaphragmatic stimulation with high output pacing. The His sheath was then slit under fluoroscopic guidance. Then the 9.5-Swedish sheath was slit and the lead was fixated to pectoralis muscle using 0 silk suture. A defibrillator pocket was created using blunt dissection over the pectoralis muscle within the pectoral fascia. Pocket was flushed with copious amounts of bacitracin saline wash and inspected for hemostasis. Pulse generator was then attached to the leads making sure that the pins were in appropriate position, passed set screw and set screws were all tightened. Pulse generator was then placed in an antibiotic pouch followed then by being placed in the pocket, making sure that all leads were lying flat beneath the device. The incision was closed in a 3-layer fashion using 2-0 Vicryl interrupted suture, followed by 3-0 Vicryl interrupted suture, followed by 4-0 Monocryl running stitch and Dermabond was applied followed by Telfa and micropore dressing. EQUIPMENT: 1. The pulse generator is a [employer]-D SureScan [id number], serial number [id number]. 2. Tyrx pouch is reference [id number], lot number [id number] with expiration 06/22/2020. 3. Right atrial lead: Medtronic 5076-52 cm, serial number [id number]. 4. Right ventricular lead: Medtronic 6935M-62 cm, serial number [id number]. 5. The His bundle lead is Medtronic 3830-69 cm, serial number [id number]. INTRAOPERATIVE TESTIN. Right atrial lead: P waves 2.8 millivolts, impedance 919 ohms, threshold 1 volt at 0.4 milliseconds. 2. Right ventricular lead: No R-waves as she went into complete heart block during the case, impedance 614 ohms, threshold 0.7 volts at 0.4 milliseconds. 3. Bipolar on the His was 681 ohms, threshold 0.5 volts at 1 millisecond. FINAL MEASUREMENTS THROUGH THE DEVICE: 1. Right atrial lead: P waves 2.8 millivolts, impedance 665 ohms, threshold 0.5 volts at 0.4 milliseconds. 2. Right ventricular lead: No R-waves as the patient has complete heart block during the case, impedance 513 ohms, threshold 0.5 volts at 0.4 milliseconds. 3. RV coil 70 ohms. 4. His bundle lead is impedance 703 ohms threshold. Total loss of capture is 0.5 volts at 1 millisecond. FINAL MEASUREMENTS: DDDR 60/130, right atrial and right ventricular amplitude 3.5 volts, pulse width 0.4 milliseconds, sensitivity 0.3 millivolts. Left ventricular which is the His bundle lead amplitude 4 volts and pulse width 1 millisecond. A VT monitor zone at 140 beats per minute for 32 detection intervals, VT zone 167 beats per minute for 16 detection intervals and VF zone at 200 beats per minute for 30/40 detection interval. IMPRESSION: Successful implantation of a biventricular rate responsive implantable cardiac defibrillator where the right ventricular lead is positioned over the His bundle under fluoroscopic guidance along with peripheral venogram and intracardiac mapping of the His bundle. PLAN: Monitor the patient overnight, 12-lead ECG, chest x-ray. She is not allowed to lift the left elbow or left shoulder for 1 month. She cannot lift more than 10 pounds with the left arm for 2 weeks. She is to keep the dressing on and dry until her wound check next week. Recommend surgical bra and continue her home medications. I attest to the content of the Intraoperative Record and any orders documented therein. Any exceptions are noted below. NOEL
== END 2019-08-30 11:45 | disposition home or self-care (01) ==
LOC: EP 12:38 → 2S 12:38
PROC: EPB.ICD (2019-08-29 14:00)